=== PATIENT | female | born 1985 | race African-American/Black ===

== ENCOUNTER 2023-04-05 15:25 | Inpatient (IN) | payer OTHER ==
[2023-04-05] MEDS ORDERED: LABETALOL HCL 20 MG/4 ML VIAL IVPUSH ONE (16:09)
[2023-04-05 16:24] LABS: BASO % 0.8 % (0-2.0); EOS % 0.7 % (0-4.5); LYMPH % 16.8 % (8-40); MCH 26.1 pg (25.7-33.7); MCHC 33.2 g/dl (32.0-36.0); MEAN CELL VOLUME 78.4 fl (80-96); MEAN PLT VOLUME 8.3 fl (7.5-11.1); MONO % 6.7 % (3.8-10.2); PLATELET COUNT 287 10^3/uL (134-434); RBC 4.21 M/mm3 (3.60-5.2); RDW 17.7 % (11.6-15.6); WHITE BLOOD COUNT 9.9 K/mm3 (4.0-10.0)
[2023-04-05 16:31] LABS: PROTHROMBIN TIME (PATIENT) 11.6 SEC (9.7-13.0)
[2023-04-05] MEDS ORDERED: LABETALOL HCL 20 MG/4 ML VIAL ONE (16:31)
[2023-04-05 16:34] LABS: ACTIVATED PTT 32.8 SECONDS (25.2-36.5); CHLORIDE 100 mmol/L (98-107); SODIUM 137 mmol/L (136-145)
[2023-04-05 16:36] LABS: CALCIUM 9.8 mg/dL (8.5-10.1)
[2023-04-05 16:37] LABS: ALBUMIN 4.6 g/dl (3.4-5.0); ANION GAP 12 mmol/L (4-13); BLOOD UREA NITROGEN 65.3 mg/dL (7-18); CO2 25 mmol/L (21-32); GLUCOSE,RANDOM 101 mg/dL (74-106); MAGNESIUM 2.7 mg/dL (1.8-2.4)
[2023-04-05 16:40] LABS: CREATININE 7.3 mg/dL (0.55-1.3); SGOT/AST 15 U/L (15-37); SGPT/ALT 16 U/L (13-61)
[2023-04-05 16:42] LABS: BILIRUBIN,TOTAL 1.3 mg/dL (0.2-1); TOT PROT 8.5 g/dl (6.4-8.2)
[2023-04-05 16:43] LABS: ALK PHOS 116 U/L (45-117)
[2023-04-05] MEDS ORDERED: POTASSIUM CHLORIDE TABS 20 MEQ TABLET.ER (FP) PO ONE (16:47)
[2023-04-05 17:30] LABS: EPI CELLS 16 /uL (0-25.1); HYALINE CASTS 0 /uL (0-3.1); PH,URINE 6.5 (5.0-8.0); URINE APPEARANCE CLEAR; URINE BACTERIA 274 /uL (0-1359); URINE BILIRUBIN NEGATIVE (NEGATIVE); URINE COLOR YELLOW; URINE GLUCOSE (UA) NEGATIVE (NEGATIVE); URINE KETONE NEGATIVE (NEGATIVE); URINE LEUK ESTERASE TRACE (NEGATIVE); URINE NITRITE NEGATIVE (NEGATIVE); URINE PROTEIN 4+ (NEGATIVE); URINE RBC 29 /uL (0-23.9); URINE UROBILINOGEN 0.2 mg/dL (0.2-1.0); URINE WBC 36 /uL (0-25.8)
[2023-04-05] MEDS ORDERED: POTASSIUM CHLORIDE TABS 10 MEQ TABLET.ER (FP) ONE (18:28)
[2023-04-05] MEDS ORDERED: LABETALOL HCL 5 MG/1 ML (100MG/20 ML VIAL) IVPUSH ONE (19:27)
[2023-04-05] MEDS ORDERED: LABETALOL IN NACL, ISO-OSMOTIC 300 MG/300 ML BAG IV SCH (19:45)
[2023-04-05] MEDS: LABETALOL HCL INJECTION 300 MG in SODIUM CHLORIDE 240 ML IV SCH (20:20)
[2023-04-05 21:50] LABS: CALCIUM 9.3 mg/dL (8.5-10.1)
[2023-04-05 21:51] LABS: BLOOD UREA NITROGEN 67.4 mg/dL (7-18)
[2023-04-05] MEDS: HEPARIN NA (PORCINE) 5,000 UNITS/ML 1ML VIAL SQ SCH (21:51)
[2023-04-05] MEDS: MUPIROCIN 2% TOPICAL OINTMENT FOR DECOLONIZATION NS SCH (21:51)
[2023-04-05] MEDS: CHLORHEXIDINE GLUCONATE 4% CLEANSER FOR DECOLONIZATION TP SCH (21:52)
[2023-04-05 21:54] LABS: CREATININE 7.1 mg/dL (0.55-1.3)
[2023-04-05] MEDS: ONDANSETRON 4 MG/2 ML VIAL IVPB PRN (23:02)
[2023-04-05] MEDS: NICARDIPINE 25 MG in DEXTROSE 5%-WATER - 240 ML IVPB SCH (23:35)
[2023-04-06] MEDS: ONDANSETRON 4 MG/2 ML VIAL IVPB PRN (05:05)
[2023-04-06 05:38] LABS: HEMATOCRIT 26.8 % (32.4-45.2); HEMOGLOBIN 8.8 GM/dL (10.7-15.3); MCH 26.4 pg (25.7-33.7); MEAN CELL VOLUME 79.8 fl (80-96); MEAN PLT VOLUME 8.2 fl (7.5-11.1); PLATELET COUNT 237 10^3/uL (134-434); RBC 3.35 M/mm3 (3.60-5.2); RDW 17.7 % (11.6-15.6); WHITE BLOOD COUNT 9.3 K/mm3 (4.0-10.0)
[2023-04-06 06:24] LABS: POTASSIUM 3.4 mmol/L (3.5-5.1)
[2023-04-06 06:27] LABS: ALBUMIN 3.7 g/dl (3.4-5.0); BLOOD UREA NITROGEN 64.2 mg/dL (7-18); MAGNESIUM 2.3 mg/dL (1.8-2.4)
[2023-04-06 06:30] LABS: CREATININE 7.1 mg/dL (0.55-1.3); PHOSPHOROUS 4.6 mg/dL (2.5-4.9)
[2023-04-06 06:31] LABS: BILIRUBIN,TOTAL 1.2 mg/dL (0.2-1); TOT PROT 6.7 g/dl (6.4-8.2)
[2023-04-06] MEDS: ACETAMINOPHEN 325 MG TABLET (FP) PO PRN ×2 (06:43→21:26)
[2023-04-06] MEDS: KCL 10 MEQ IVPB 10 MEQ/100 ML INFUS.BAG IVPB SCH ×2 (07:32→08:04)
[2023-04-06] MEDS ORDERED: POTASSIUM CHLORIDE TABS 20 MEQ TABLET.ER (FP) PO ONE (07:58)
[2023-04-06 09:47] LABS: METHADONE, UR NEGATIVE (NEGATIVE); URINE AMPHETAMINES NEGATIVE (NEGATIVE)
[2023-04-06 09:48] LABS: COCAINE, UR NEGATIVE (NEGATIVE)
[2023-04-06 09:49] LABS: OPIATES, URI NEGATIVE (NEGATIVE)
[2023-04-06 09:50] LABS: URINE BARBITURATES NEGATIVE (NEGATIVE)
[2023-04-06 09:51] LABS: PHENCYCLIDINE,URINE NEGATIVE (NEGATIVE); URINE BENZODIAZEPINES NEGATIVE (NEGATIVE)
[2023-04-06 11:48] LABS: BASO % 0.8 % (0-2.0); EOS % 0.5 % (0-4.5); HEMATOCRIT 28.9 % (32.4-45.2); HEMOGLOBIN 9.3 GM/dL (10.7-15.3); LYMPH % 19.4 % (8-40); MCHC 32.1 g/dl (32.0-36.0); MEAN PLT VOLUME 8.4 fl (7.5-11.1); MONO % 6.3 % (3.8-10.2); PLATELET COUNT 258 10^3/uL (134-434); RBC 3.56 M/mm3 (3.60-5.2); RDW 17.9 % (11.6-15.6); WHITE BLOOD COUNT 9.7 K/mm3 (4.0-10.0)
[2023-04-06] MEDS: HEPARIN NA (PORCINE) 5,000 UNITS/ML 1ML VIAL SQ SCH ×2 (12:12→21:24)
[2023-04-06] MEDS: MUPIROCIN 2% TOPICAL OINTMENT FOR DECOLONIZATION NS SCH ×2 (12:13→21:25)
[2023-04-06 13:11] LABS: HIV INTERPRETATION NEGATIVE (NEGATIVE)
[2023-04-06] MEDS ORDERED: LACTATED RINGERS SOLUTION 1,000 ML/1,000 ML INFUS.BAG IV SCH (15:15)
[2023-04-06] MEDS: LABETALOL HCL INJECTION 300 MG in SODIUM CHLORIDE 240 ML IV SCH (19:55)
[2023-04-06] MEDS: CHLORHEXIDINE GLUCONATE 4% CLEANSER FOR DECOLONIZATION TP SCH (21:24)
[2023-04-06] MEDS: NICARDIPINE 25 MG in DEXTROSE 5%-WATER - 240 ML IVPB SCH (21:24)
[2023-04-07] MEDS: KCL 10 MEQ IVPB 10 MEQ/100 ML INFUS.BAG IVPB SCH ×3 (00:30→13:40)
[2023-04-07 07:27] LABS: HEMOGLOBIN 9.6 GM/dL (10.7-15.3); MCH 26.6 pg (25.7-33.7); MCHC 33.2 g/dl (32.0-36.0); MEAN CELL VOLUME 80.1 fl (80-96); MEAN PLT VOLUME 8.3 fl (7.5-11.1); PLATELET COUNT 260 10^3/uL (134-434); RBC 3.62 M/mm3 (3.60-5.2); RDW 17.5 % (11.6-15.6); RETICULOCYTES 0.96 % (0.5-1.5)
[2023-04-07 07:58] LABS: POTASSIUM 3.4 mmol/L (3.5-5.1)
[2023-04-07 08:01] LABS: ALBUMIN 3.8 g/dl (3.4-5.0); BLOOD UREA NITROGEN 61.8 mg/dL (7-18); CALCIUM 9.1 mg/dL (8.5-10.1); MAGNESIUM 2.4 mg/dL (1.8-2.4)
[2023-04-07 08:04] LABS: PHOSPHOROUS 4.9 mg/dL (2.5-4.9)
[2023-04-07 08:05] LABS: CREATININE 7.2 mg/dL (0.55-1.3)
[2023-04-07 08:06] LABS: BILIRUBIN,TOTAL 0.8 mg/dL (0.2-1)
[2023-04-07] MEDS ORDERED: POTASSIUM CHLORIDE TABS 20 MEQ TABLET.ER (FP) PO ONE (08:12)
[2023-04-07 09:37] LABS: ANISOCYTOSIS 3+; MACROCYTOSIS 0
[2023-04-07] MEDS: NIFEdipine E.R 60 MG TABLET PO SCH (13:34)
[2023-04-07] MEDS: HEPARIN NA (PORCINE) 5,000 UNITS/ML 1ML VIAL SQ SCH ×2 (13:35→21:37)
[2023-04-07] MEDS: MUPIROCIN 2% TOPICAL OINTMENT FOR DECOLONIZATION NS SCH ×2 (13:37→21:21)
[2023-04-07] MEDS: ONDANSETRON 4 MG/2 ML VIAL IVPB PRN (18:02)
[2023-04-07] MEDS ORDERED: hydrALAZINE HCL 20 MG/ML VIAL IVPUSH ONE (19:49)
[2023-04-07] MEDS: ACETAMINOPHEN 325 MG TABLET (FP) PO PRN (19:53)
[2023-04-07] MEDS: CHLORHEXIDINE GLUCONATE 4% CLEANSER FOR DECOLONIZATION TP SCH (21:20)
[2023-04-07] MEDS: NICARDIPINE 25 MG in DEXTROSE 5%-WATER - 240 ML IVPB SCH (21:25)
[2023-04-07] MEDS: LABETALOL HCL INJECTION 300 MG in SODIUM CHLORIDE 240 ML IV SCH (21:34)
[2023-04-07] MEDS ORDERED: METOCLOPRAMIDE HCL INJECTION 10 MG/2 ML VIAL IVPUSH PRN (23:39)
[2023-04-08] MEDS ORDERED: LABETALOL HCL 100 MG TABLET (FP) PO SCH ×2 (01:00→06:00)
[2023-04-08] MEDS: NICARDIPINE 25 MG in DEXTROSE 5%-WATER - 240 ML IVPB SCH ×2 (01:56→20:40)
[2023-04-08 06:59] LABS: POTASSIUM 3.6 mmol/L (3.5-5.1)
[2023-04-08 07:13] LABS: ALBUMIN 3.7 g/dl (3.4-5.0)
[2023-04-08 07:15] LABS: CALCIUM 9.2 mg/dL (8.5-10.1)
[2023-04-08 07:16] LABS: CREATININE 7.3 mg/dL (0.55-1.3)
[2023-04-08 07:17] LABS: MAGNESIUM 2.2 mg/dL (1.8-2.4); PHOSPHOROUS 4.8 mg/dL (2.5-4.9)
[2023-04-08 07:18] LABS: BILIRUBIN,TOTAL 1.1 mg/dL (0.2-1); TOT PROT 7.2 g/dl (6.4-8.2)
[2023-04-08] MEDS: HEPARIN NA (PORCINE) 5,000 UNITS/ML 1ML VIAL SQ SCH ×2 (09:46→21:03)
[2023-04-08] MEDS: NIFEdipine E.R 60 MG TABLET PO SCH (09:46)
[2023-04-08] MEDS: MUPIROCIN 2% TOPICAL OINTMENT FOR DECOLONIZATION NS SCH ×2 (09:48→21:03)
[2023-04-08 10:06] LABS: ANTIGLOMERULAR BASEMENT MEN.AB <0.2 units (0.0-0.9)
[2023-04-08] MEDS: LABETALOL HCL 100 MG TABLET (FP) PO SCH ×2 (10:30→21:03)
[2023-04-08] MEDS: ACETAMINOPHEN 325 MG TABLET (FP) PO PRN (19:35)
[2023-04-08] MEDS: CHLORHEXIDINE GLUCONATE 4% CLEANSER FOR DECOLONIZATION TP SCH (21:03)
[2023-04-08] MEDS: LABETALOL HCL INJECTION 300 MG in SODIUM CHLORIDE 240 ML IV SCH (21:04)
[2023-04-08] MEDS: ONDANSETRON 4 MG/2 ML VIAL IVPB PRN (21:05)
[2023-04-08 21:29] LABS: EPI CELLS >36 /uL (0-25.1); HYALINE CASTS 2 /uL (0-3.1); URINE APPEARANCE TURBID; URINE BACTERIA 6531 /uL (0-1359); URINE BILIRUBIN NEGATIVE (NEGATIVE); URINE COLOR YELLOW; URINE GLUCOSE (UA) NEGATIVE (NEGATIVE); URINE KETONE NEGATIVE (NEGATIVE); URINE LEUK ESTERASE 1+ (NEGATIVE); URINE NITRITE NEGATIVE (NEGATIVE); URINE PROTEIN 3+ (NEGATIVE); URINE UROBILINOGEN 0.2 mg/dL (0.2-1.0); URINE WBC 395 /uL (0-25.8)
[2023-04-08 21:31] LABS: URINE RBC 16.8 /uL (0-23.9)
[2023-04-09 06:13] LABS: HEMATOCRIT 28.7 % (32.4-45.2); HEMOGLOBIN 9.4 GM/dL (10.7-15.3); MCH 25.9 pg (25.7-33.7); MCHC 32.7 g/dl (32.0-36.0); MEAN CELL VOLUME 79.4 fl (80-96); MEAN PLT VOLUME 8.4 fl (7.5-11.1); PLATELET COUNT 289 10^3/uL (134-434); RBC 3.61 M/mm3 (3.60-5.2); RDW 17.7 % (11.6-15.6); WHITE BLOOD COUNT 12.1 K/mm3 (4.0-10.0)
[2023-04-09 06:37] LABS: CHLORIDE 98 mmol/L (98-107); POTASSIUM 3.5 mmol/L (3.5-5.1); SODIUM 130 mmol/L (136-145)
[2023-04-09 06:40] LABS: CALCIUM 8.9 mg/dL (8.5-10.1)
[2023-04-09 06:41] LABS: ANION GAP 12 mmol/L (4-13); CO2 20 mmol/L (21-32); GLUCOSE,RANDOM 136 mg/dL (74-106); MAGNESIUM 2.2 mg/dL (1.8-2.4)
[2023-04-09 06:44] LABS: PHOSPHOROUS 6.4 mg/dL (2.5-4.9)
[2023-04-09 06:46] LABS: CREATININE 8.5 mg/dL (0.55-1.3)
[2023-04-09] MEDS ORDERED: LISINOPRIL 20 MG TABLET PO ONE (09:45)
[2023-04-09] MEDS: HEPARIN NA (PORCINE) 5,000 UNITS/ML 1ML VIAL SQ SCH ×2 (09:49→21:06)
[2023-04-09] MEDS: NIFEdipine E.R. 90 MG TABLET PO SCH (09:49)
[2023-04-09] MEDS: LABETALOL HCL 100 MG TABLET (FP) PO SCH ×2 (09:49→21:06)
[2023-04-09] MEDS: ACETAMINOPHEN 325 MG TABLET (FP) PO PRN ×2 (09:50→21:06)
[2023-04-09] MEDS: MUPIROCIN 2% TOPICAL OINTMENT FOR DECOLONIZATION NS SCH ×2 (09:52→21:05)
[2023-04-09] MEDS: NICARDIPINE 25 MG in DEXTROSE 5%-WATER - 240 ML IVPB SCH (11:00)
[2023-04-09] MEDS: CHLORHEXIDINE GLUCONATE 4% CLEANSER FOR DECOLONIZATION TP SCH (21:06)
[2023-04-09] MEDS: MELATONIN 5 MG TABLETS PO SCH (21:09)
[2023-04-10 07:26] LABS: HEMATOCRIT 25.7 % (32.4-45.2); HEMOGLOBIN 8.5 GM/dL (10.7-15.3); MCH 26.7 pg (25.7-33.7); MEAN CELL VOLUME 80.7 fl (80-96); MEAN PLT VOLUME 8.8 fl (7.5-11.1); PLATELET COUNT 248 10^3/uL (134-434); RBC 3.18 M/mm3 (3.60-5.2); WHITE BLOOD COUNT 9.3 K/mm3 (4.0-10.0)
[2023-04-10 07:54] LABS: CHLORIDE 99 mmol/L (98-107); POTASSIUM 3.5 mmol/L (3.5-5.1); SODIUM 132 mmol/L (136-145)
[2023-04-10 08:00] LABS: ANION GAP 11 mmol/L (4-13); BLOOD UREA NITROGEN 72.5 mg/dL (7-18); CO2 22 mmol/L (21-32); GLUCOSE,RANDOM 108 mg/dL (74-106)
[2023-04-10 08:01] LABS: CALCIUM 8.4 mg/dL (8.5-10.1); MAGNESIUM 2.2 mg/dL (1.8-2.4)
[2023-04-10 08:03] LABS: PHOSPHOROUS 6.3 mg/dL (2.5-4.9)
[2023-04-10] MEDS: LABETALOL HCL 100 MG TABLET (FP) PO SCH (09:33)
[2023-04-10] MEDS: hydrALAZINE HCL 25 MG TABLET (FP) PO SCH ×3 (09:34→21:11)
[2023-04-10] MEDS: HEPARIN NA (PORCINE) 5,000 UNITS/ML 1ML VIAL SQ SCH ×2 (09:34→21:10)
[2023-04-10] MEDS: NIFEdipine E.R. 90 MG TABLET PO SCH (09:34)
[2023-04-10] MEDS ORDERED: LISINOPRIL 20 MG TABLET PO SCH (10:00)
[2023-04-10] MEDS ORDERED: ALPRAZolam 1 MG TABLET PO PRN (10:52)
[2023-04-10] MEDS ORDERED: hydrALAZINE HCL 50 MG TABLET (FP) PO SCH (15:20)
[2023-04-10 15:26] VITALS: BMI 26.9
[2023-04-10 16:12] LABS: ATYPICAL pANCA <1:20 titer (Neg:<1:20); C-ANCA <1:20 titer (Neg:<1:20)
[2023-04-10] MEDS: ACETAMINOPHEN 325 MG TABLET (FP) PO PRN ×2 (17:12→23:10)
[2023-04-10] MEDS: LABETALOL HCL 200 MG TABLET (FP) PO SCH (21:10)
[2023-04-10] MEDS: CHLORHEXIDINE GLUCONATE 4% CLEANSER FOR DECOLONIZATION TP SCH (21:11)
[2023-04-10] MEDS: MELATONIN 5 MG TABLETS PO SCH (23:11)
[2023-04-11] MEDS: hydrALAZINE HCL 25 MG TABLET (FP) PO SCH ×2 (05:21→06:18)
[2023-04-11] MEDS: ACETAMINOPHEN 325 MG TABLET (FP) PO PRN ×2 (06:23→22:46)
[2023-04-11] MEDS: ONDANSETRON 4 MG/2 ML VIAL IVPB PRN (06:23)
[2023-04-11 07:26] LABS: HEMATOCRIT 25.5 % (32.4-45.2); HEMOGLOBIN 8.7 GM/dL (10.7-15.3); MCH 27.1 pg (25.7-33.7); MCHC 34.3 g/dl (32.0-36.0); MEAN CELL VOLUME 79.1 fl (80-96); MEAN PLT VOLUME 8.6 fl (7.5-11.1); PLATELET COUNT 261 10^3/uL (134-434); RBC 3.22 M/mm3 (3.60-5.2); RDW 18.1 % (11.6-15.6); WHITE BLOOD COUNT 8.4 K/mm3 (4.0-10.0)
[2023-04-11] MEDS: NICARDIPINE 25 MG in DEXTROSE 5%-WATER - 240 ML IVPB SCH (07:38)
[2023-04-11 07:57] LABS: CHLORIDE 101 mmol/L (98-107); POTASSIUM 3.8 mmol/L (3.5-5.1); SODIUM 132 mmol/L (136-145)
[2023-04-11 08:12] LABS: CALCIUM 8.7 mg/dL (8.5-10.1)
[2023-04-11 08:13] LABS: ALBUMIN 3.2 g/dl (3.4-5.0); ANION GAP 10 mmol/L (4-13); BLOOD UREA NITROGEN 73.4 mg/dL (7-18); CO2 20 mmol/L (21-32); GLUCOSE,RANDOM 95 mg/dL (74-106)
[2023-04-11 08:16] LABS: PHOSPHOROUS 6.2 mg/dL (2.5-4.9); SGOT/AST 9 U/L (15-37); SGPT/ALT 12 U/L (13-61)
[2023-04-11 08:18] LABS: ALK PHOS 81 U/L (45-117); BILIRUBIN,TOTAL 0.6 mg/dL (0.2-1); TOT PROT 6.4 g/dl (6.4-8.2)
[2023-04-11 08:24] LABS: CREATININE 9.1 mg/dL (0.55-1.3)
[2023-04-11] MEDS: LABETALOL HCL 200 MG TABLET (FP) PO SCH ×2 (09:07→21:01)
[2023-04-11] MEDS: HEPARIN NA (PORCINE) 5,000 UNITS/ML 1ML VIAL SQ SCH ×2 (09:08→21:01)
[2023-04-11] MEDS: NIFEdipine E.R. 90 MG TABLET PO SCH (09:08)
[2023-04-11] MEDS: MUPIROCIN 2% TOPICAL OINTMENT FOR DECOLONIZATION NS SCH (09:08)
[2023-04-11] MEDS ORDERED: SODIUM ZIRCONIUM CYCLOSILICATE (LOKELMA) 5 GM PACKET PO SCH ×2 (14:45→22:00)
[2023-04-11] MEDS: SEVELAMER CARBONATE 0.8 GM POWDER PACKET PO SCH (17:47)
[2023-04-11] MEDS: MELATONIN 5 MG TABLETS PO SCH (21:01)
[2023-04-11] MEDS: CHLORHEXIDINE GLUCONATE 4% CLEANSER FOR DECOLONIZATION TP SCH (21:01)
[2023-04-11 21:06] LABS: RENIN ACTIVITY(PRA) 0.541 ng/mL/hr (0.167-5.380)
[2023-04-12 08:17] LABS: BASO % 0.9 % (0-2.0); EOS % 1.3 % (0-4.5); HEMOGLOBIN 8.2 GM/dL (10.7-15.3); LYMPH % 28.3 % (8-40); MCH 26.6 pg (25.7-33.7); MCHC 32.6 g/dl (32.0-36.0); MEAN CELL VOLUME 81.6 fl (80-96); MEAN PLT VOLUME 8.7 fl (7.5-11.1); MONO % 9.9 % (3.8-10.2); NEUT % 59.6 % (42.8-82.8); PLATELET COUNT 291 10^3/uL (134-434); RBC 3.07 M/mm3 (3.60-5.2); RDW 17.8 % (11.6-15.6); WHITE BLOOD COUNT 7.3 K/mm3 (4.0-10.0)
[2023-04-12 08:58] LABS: CHLORIDE 102 mmol/L (98-107); POTASSIUM 4.2 mmol/L (3.5-5.1); SODIUM 133 mmol/L (136-145)
[2023-04-12] MEDS: SEVELAMER CARBONATE 0.8 GM POWDER PACKET PO SCH ×2 (09:00→11:15)
[2023-04-12 09:08] LABS: ALBUMIN 3.3 g/dl (3.4-5.0); ANION GAP 9 mmol/L (4-13); BLOOD UREA NITROGEN 73.7 mg/dL (7-18); CALCIUM 8.8 mg/dL (8.5-10.1); CO2 23 mmol/L (21-32); GLUCOSE,RANDOM 83 mg/dL (74-106); SGPT/ALT 15 U/L (13-61)
[2023-04-12 09:09] LABS: BILIRUBIN,TOTAL 0.8 mg/dL (0.2-1); TOT PROT 6.3 g/dl (6.4-8.2)
[2023-04-12 09:11] LABS: ALK PHOS 77 U/L (45-117)
[2023-04-12 09:12] LABS: SGOT/AST 8 U/L (15-37)
[2023-04-12 09:14] LABS: CREATININE 9.3 mg/dL (0.55-1.3)
[2023-04-12] MEDS: HEPARIN NA (PORCINE) 5,000 UNITS/ML 1ML VIAL SQ SCH ×2 (11:15→21:47)
[2023-04-12] MEDS: NIFEdipine E.R. 90 MG TABLET PO SCH (11:15)
[2023-04-12] MEDS: LABETALOL HCL 200 MG TABLET (FP) PO SCH ×2 (11:15→21:47)
[2023-04-12] MEDS ORDERED: INSULIN (LEVEMIR) 100 UNITS/ML UNITS SQ ONE (18:19)
[2023-04-12] MEDS: CHLORHEXIDINE GLUCONATE 4% CLEANSER FOR DECOLONIZATION TP SCH (21:47)
[2023-04-12] MEDS: MELATONIN 5 MG TABLETS PO SCH (21:47)
[2023-04-13] MEDS: ACETAMINOPHEN 325 MG TABLET (FP) PO PRN ×2 (05:36→21:56)
[2023-04-13 07:09] LABS: HEMATOCRIT 24.4 % (32.4-45.2); HEMOGLOBIN 8.1 GM/dL (10.7-15.3); MCH 26.9 pg (25.7-33.7); MCHC 33.3 g/dl (32.0-36.0); MEAN CELL VOLUME 80.8 fl (80-96); MEAN PLT VOLUME 8.4 fl (7.5-11.1); PLATELET COUNT 328 10^3/uL (134-434); RBC 3.02 M/mm3 (3.60-5.2); WHITE BLOOD COUNT 7.3 K/mm3 (4.0-10.0)
[2023-04-13 07:39] LABS: CHLORIDE 103 mmol/L (98-107); POTASSIUM 4.3 mmol/L (3.5-5.1); SODIUM 134 mmol/L (136-145)
[2023-04-13 07:45] LABS: GLUCOSE,RANDOM 96 mg/dL (74-106)
[2023-04-13 07:48] LABS: CALCIUM 8.8 mg/dL (8.5-10.1)
[2023-04-13 07:49] LABS: ANION GAP 11 mmol/L (4-13); BLOOD UREA NITROGEN 71.3 mg/dL (7-18); CO2 19 mmol/L (21-32); MAGNESIUM 2.3 mg/dL (1.8-2.4)
[2023-04-13 07:51] LABS: PHOSPHOROUS 6.5 mg/dL (2.5-4.9)
[2023-04-13 07:57] LABS: CREATININE 9.2 mg/dL (0.55-1.3)
[2023-04-13] MEDS: HEPARIN NA (PORCINE) 5,000 UNITS/ML 1ML VIAL SQ SCH ×3 (09:29→21:55)
[2023-04-13] MEDS: NIFEdipine E.R. 90 MG TABLET PO SCH (09:29)
[2023-04-13] MEDS: LABETALOL HCL 200 MG TABLET (FP) PO SCH ×2 (09:29→21:56)
[2023-04-13] MEDS: SEVELAMER CARBONATE 0.8 GM POWDER PACKET PO SCH ×3 (09:29→17:46)
[2023-04-13] MEDS ORDERED: SODIUM CHLORIDE 250 ML IV PRN (13:16)
[2023-04-13] MEDS ORDERED: SODIUM CHLORIDE 1,000 ML IV SCH (20:15)
[2023-04-13] MEDS ORDERED: LACTATED RINGERS SOLUTION 1,000 ML IV SCH (20:15)
[2023-04-13] MEDS ORDERED: PROPOFOL 20 ML ONE (20:38)
[2023-04-13] MEDS ORDERED: MIDAZOLAM HCL 2 MG/2 ML SINGLE DOSE VIAL ONE (20:38)
[2023-04-13] MEDS ORDERED: FENTANYL CITRATE/PF 50 MCG/ML VIAL ONE (20:52)
[2023-04-13] MEDS ORDERED: ceFAZolin SODIUM 1 GM VIAL IVPB ONE (21:05)
[2023-04-13] MEDS ORDERED: LIDOCAINE HCL 1%, 10 MG/ML (20ML VIAL) NR ONE (21:05)
[2023-04-13] MEDS: MELATONIN 5 MG TABLETS PO SCH (21:55)
[2023-04-13] MEDS: CHLORHEXIDINE GLUCONATE 4% CLEANSER FOR DECOLONIZATION TP SCH (21:56)
[2023-04-14] MEDS ORDERED: ALPRAZolam 1 MG TABLET PO PRN (02:51)
[2023-04-14] MEDS: SEVELAMER CARBONATE 0.8 GM POWDER PACKET PO SCH ×3 (08:00→19:03)
[2023-04-14 08:06] LABS: BASO % 0.7 % (0-2.0); EOS % 1.2 % (0-4.5); HEMATOCRIT 24.7 % (32.4-45.2); HEMOGLOBIN 8.1 GM/dL (10.7-15.3); LYMPH % 23.1 % (8-40); MCH 26.8 pg (25.7-33.7); MCHC 32.7 g/dl (32.0-36.0); MEAN CELL VOLUME 81.9 fl (80-96); MEAN PLT VOLUME 8.2 fl (7.5-11.1); MONO % 6.8 % (3.8-10.2); NEUT % 68.2 % (42.8-82.8); PLATELET COUNT 344 10^3/uL (134-434); RBC 3.01 M/mm3 (3.60-5.2); RDW 17.5 % (11.6-15.6)
[2023-04-14 08:21] LABS: CHLORIDE 104 mmol/L (98-107); POTASSIUM 4.1 mmol/L (3.5-5.1); SODIUM 134 mmol/L (136-145)
[2023-04-14 08:32] LABS: ALBUMIN 3.3 g/dl (3.4-5.0); BLOOD UREA NITROGEN 67.6 mg/dL (7-18); GLUCOSE,RANDOM 99 mg/dL (74-106); PHOSPHOROUS 6.7 mg/dL (2.5-4.9); SGPT/ALT 14 U/L (13-61)
[2023-04-14 08:34] LABS: ANION GAP 11 mmol/L (4-13); BILIRUBIN,TOTAL 0.6 mg/dL (0.2-1); CALCIUM 9.3 mg/dL (8.5-10.1); CO2 19 mmol/L (21-32); MAGNESIUM 2.3 mg/dL (1.8-2.4); TOT PROT 6.2 g/dl (6.4-8.2)
[2023-04-14 08:35] LABS: ALK PHOS 76 U/L (45-117); SGOT/AST 10 U/L (15-37)
[2023-04-14 08:36] LABS: CREATININE 9.1 mg/dL (0.55-1.3)
[2023-04-14] MEDS: NIFEdipine E.R. 90 MG TABLET PO SCH (12:48)
[2023-04-14] MEDS: LABETALOL HCL 200 MG TABLET (FP) PO SCH ×2 (12:48→21:26)
[2023-04-14] MEDS: HEPARIN NA (PORCINE) 5,000 UNITS/ML 1ML VIAL SQ SCH ×2 (12:48→21:27)
[2023-04-14] MEDS ORDERED: ONDANSETRON 4 MG/2 ML VIAL IVPB PRN (20:07)
[2023-04-14] MEDS ORDERED: ACETAMINOPHEN 325 MG TABLET (FP) PO PRN (20:07)
[2023-04-14] MEDS: SODIUM CHLORIDE 1,000 ML IV SCH ×2 (20:28→22:06)
[2023-04-14] MEDS: MELATONIN 5 MG TABLETS PO SCH (21:26)
[2023-04-14] MEDS ORDERED: CHLORHEXIDINE GLUCONATE 4% CLEANSER FOR DECOLONIZATION TP SCH (22:00)
[2023-04-15] MEDS ORDERED: SODIUM CHLORIDE 250 ML IV PRN (07:52)
[2023-04-15] MEDS ORDERED: HEPARIN NA (PORCINE) 5,000 UNITS/ML 1ML VIAL IVPUSH ONE (08:00)
[2023-04-15] MEDS: SEVELAMER CARBONATE 0.8 GM POWDER PACKET PO SCH ×3 (08:04→16:59)
[2023-04-15 09:25] LABS: EOS % 1.6 % (0-4.5); MCH 27.1 pg (25.7-33.7); MCHC 33.2 g/dl (32.0-36.0); MEAN CELL VOLUME 81.6 fl (80-96); MEAN PLT VOLUME 7.9 fl (7.5-11.1); MONO % 11.2 % (3.8-10.2); NEUT % 63.2 % (42.8-82.8); PLATELET COUNT 322 10^3/uL (134-434); RBC 2.95 M/mm3 (3.60-5.2); RDW 17.8 % (11.6-15.6); WHITE BLOOD COUNT 5.9 K/mm3 (4.0-10.0)
[2023-04-15 09:49] LABS: POTASSIUM 3.6 mmol/L (3.5-5.1)
[2023-04-15 09:53] LABS: CALCIUM 8.9 mg/dL (8.5-10.1)
[2023-04-15 09:55] LABS: ALBUMIN 3.3 g/dl (3.4-5.0); CREATININE 6.3 mg/dL (0.55-1.3); PHOSPHOROUS 4.1 mg/dL (2.5-4.9)
[2023-04-15 09:56] LABS: BILIRUBIN,TOTAL 0.7 mg/dL (0.2-1); TOT PROT 6.4 g/dl (6.4-8.2)
[2023-04-15] MEDS ORDERED: NIFEdipine E.R. 90 MG TABLET PO SCH (10:00)
[2023-04-15 10:01] LABS: BLOOD UREA NITROGEN 38.8 mg/dL (7-18)
[2023-04-15] MEDS: LABETALOL HCL 200 MG TABLET (FP) PO SCH ×2 (12:01→21:47)
[2023-04-15] MEDS: HEPARIN NA (PORCINE) 5,000 UNITS/ML 1ML VIAL SQ SCH ×2 (13:06→21:47)
[2023-04-15] MEDS: NIFEdipine E.R. 30 MG TABLET PO ONE ×2 (16:13→16:15)
[2023-04-15] MEDS: ATORVASTATIN CA 20 MG TABLET (FP) PO SCH (21:47)
[2023-04-15] MEDS: MELATONIN 5 MG TABLETS PO SCH (21:48)
[2023-04-16] MEDS: SEVELAMER CARBONATE 0.8 GM POWDER PACKET PO SCH ×3 (08:23→16:44)
[2023-04-16] MEDS: NIFEdipine E.R 60 MG TABLET PO SCH ×2 (09:04→09:13)
[2023-04-16] MEDS: LABETALOL HCL 200 MG TABLET (FP) PO SCH ×3 (09:04→21:14)
[2023-04-16] MEDS: HEPARIN NA (PORCINE) 5,000 UNITS/ML 1ML VIAL SQ SCH ×2 (09:04→21:15)
[2023-04-16 09:33] LABS: HEMATOCRIT 26.9 % (32.4-45.2); HEMOGLOBIN 8.8 GM/dL (10.7-15.3); MCH 27.2 pg (25.7-33.7); MCHC 32.8 g/dl (32.0-36.0); MEAN CELL VOLUME 82.8 fl (80-96); MEAN PLT VOLUME 7.9 fl (7.5-11.1); PLATELET COUNT 339 10^3/uL (134-434); RBC 3.25 M/mm3 (3.60-5.2); RDW 17.6 % (11.6-15.6); WHITE BLOOD COUNT 6.2 K/mm3 (4.0-10.0)
[2023-04-16 09:48] LABS: POTASSIUM 4.1 mmol/L (3.5-5.1)
[2023-04-16 10:00] LABS: CALCIUM 9.5 mg/dL (8.5-10.1)
[2023-04-16] MEDS ORDERED: NIFEdipine E.R 60 MG TABLET PO SCH (10:00)
[2023-04-16 10:01] LABS: ALBUMIN 3.5 g/dl (3.4-5.0); BLOOD UREA NITROGEN 22.2 mg/dL (7-18); MAGNESIUM 2.1 mg/dL (1.8-2.4)
[2023-04-16 10:04] LABS: CREATININE 5.3 mg/dL (0.55-1.3); PHOSPHOROUS 4.6 mg/dL (2.5-4.9)
[2023-04-16 10:05] LABS: TOT PROT 6.8 g/dl (6.4-8.2)
[2023-04-16 10:06] LABS: BILIRUBIN,TOTAL 1.1 mg/dL (0.2-1)
[2023-04-16 10:42] VITALS: RESP 18
[2023-04-16] MEDS: MELATONIN 5 MG TABLETS PO SCH (21:14)
[2023-04-16] MEDS: ATORVASTATIN CA 20 MG TABLET (FP) PO SCH (21:14)
[2023-04-17] MEDS: HEPARIN NA (PORCINE) 5,000 UNITS/ML 1ML VIAL IVPUSH SCH ×3 (08:50→10:50)
[2023-04-17 09:21] LABS: EOS % 1.4 % (0-4.5); HEMATOCRIT 24.4 % (32.4-45.2); HEMOGLOBIN 8.3 GM/dL (10.7-15.3); LYMPH % 17.6 % (8-40); MCH 27.3 pg (25.7-33.7); MEAN CELL VOLUME 80.2 fl (80-96); MEAN PLT VOLUME 7.4 fl (7.5-11.1); MONO % 8.1 % (3.8-10.2); NEUT % 71.9 % (42.8-82.8); PLATELET COUNT 296 10^3/uL (134-434); RBC 3.04 M/mm3 (3.60-5.2); WHITE BLOOD COUNT 6.7 K/mm3 (4.0-10.0)
[2023-04-17 09:29] LABS: INR 1.04 (0.83-1.09); PROTHROMBIN TIME (PATIENT) 12.1 SEC (9.7-13.0)
[2023-04-17 09:32] LABS: ACTIVATED PTT 28.7 SECONDS (25.2-36.5)
[2023-04-17] MEDS: SEVELAMER CARBONATE 0.8 GM POWDER PACKET PO SCH ×2 (09:43→13:17)
[2023-04-17] MEDS ORDERED: SODIUM CHLORIDE 250 ML IV PRN (09:45)
[2023-04-17 10:03] LABS: POTASSIUM 3.6 mmol/L (3.5-5.1)
[2023-04-17 10:05] LABS: ALBUMIN 3.3 g/dl (3.4-5.0); BLOOD UREA NITROGEN 30.4 mg/dL (7-18)
[2023-04-17 10:08] LABS: CREATININE 6.3 mg/dL (0.55-1.3); PHOSPHOROUS 4.1 mg/dL (2.5-4.9)
[2023-04-17 10:10] LABS: BILIRUBIN,TOTAL 0.8 mg/dL (0.2-1); TOT PROT 6.4 g/dl (6.4-8.2)
[2023-04-17] MEDS: HEPARIN NA (PORCINE) 5,000 UNITS/ML 1ML VIAL SQ SCH (11:39)
[2023-04-17] MEDS: LABETALOL HCL 200 MG TABLET (FP) PO SCH ×2 (11:39→12:24)
[2023-04-17] MEDS: NIFEdipine E.R 60 MG TABLET PO SCH (12:24)
[2023-04-17 14:24] VITALS: BP 157/103; PULSE 81; TEMP 98
== END 2023-04-17 16:42 | disposition home or self-care (01) | DRG 683 ==
LOC: JER 15:25 → JICU 18:17 → J6S 04-14 17:11
PROVIDERS: ADMIT Internal Medicine; ATTEND Internal Medicine
PROC: 03HY32Z Insertion of Monitoring Device into Upper Artery, Percutaneous Approach (ICD-10-PCS; principal; 2023-04-05)
PROC: 4A133B1 Monitoring of Arterial Pressure, Peripheral, Percutaneous Approach (ICD-10-PCS; 2023-04-05)
PROC: 4A133J1 Monitoring of Arterial Pulse, Peripheral, Percutaneous Approach (ICD-10-PCS; 2023-04-05)
PROC: 03HY32Z Insertion of Monitoring Device into Upper Artery, Percutaneous Approach (ICD-10-PCS; 2023-04-08)
PROC: 4A133B1 Monitoring of Arterial Pressure, Peripheral, Percutaneous Approach (ICD-10-PCS; 2023-04-08)
PROC: 4A133J1 Monitoring of Arterial Pulse, Peripheral, Percutaneous Approach (ICD-10-PCS; 2023-04-08)
PROC: 05HF33Z Insertion of Infusion Device into Left Cephalic Vein, Percutaneous Approach (ICD-10-PCS; 2023-04-08)
PROC: B54NZZA Ultrasonography of Left Upper Extremity Veins, Guidance (ICD-10-PCS; 2023-04-08)
PROC: 03HY32Z Insertion of Monitoring Device into Upper Artery, Percutaneous Approach (ICD-10-PCS; 2023-04-08)
PROC: 4A133B1 Monitoring of Arterial Pressure, Peripheral, Percutaneous Approach (ICD-10-PCS; 2023-04-08)
PROC: 4A133J1 Monitoring of Arterial Pulse, Peripheral, Percutaneous Approach (ICD-10-PCS; 2023-04-08)
PROC: 02H633Z Insertion of Infusion Device into Right Atrium, Percutaneous Approach (ICD-10-PCS; 2023-04-13)
PROC: B548ZZA Ultrasonography of Superior Vena Cava, Guidance (ICD-10-PCS; 2023-04-13)
DX: N17.9 Acute kidney failure, unspecified (principal); I16.1 Hypertensive emergency; I24.89 Other forms of acute ischemic heart disease; E87.6 Hypokalemia; E83.41 Hypermagnesemia; D64.9 Anemia, unspecified; I12.9 Hypertensive chronic kidney disease with stage 1 through stage 4 chronic kidney disease, or unspecified chronic kidney disease; N18.9 Chronic kidney disease, unspecified; E87.5 Hyperkalemia; E83.39 Other disorders of phosphorus metabolism; I95.1 Orthostatic hypotension
CPT/HCPCS: 0241U-QW; 36415; 70450-TC; 71045-TC-FY; 74176-TC; 76000-TC-FY; 76775-TC; 80048; 80053; 80061; 80307; 81003; 82088; 82150; 82384; 82436; 82550; 82553; 82570; 82728; 83036; 83516; 83520; 83540; 83550; 83605; 83690; 83735; 83835; 83880; 83935; 83970; 84100; 84133; 84155; 84156; 84165; 84244; 84300; 84311; 84439; 84443; 84481; 84484; 84540; 84703; 85025; 85027; 85045; 85610; 85730; 86038; 86160; 86225; 86256; 86335; 86705; 87086; 87340; 87389; 87517; 87522; 93005; 93010; 93306-TC; 93975; 99285-25; C1750; J1644